=== PATIENT | female | born 1985 | race African-American/Black ===

== ENCOUNTER 2017-07-18 10:43 | Inpatient (IN) ==
[2017-07-18] MEDS ORDERED: ONDANSETRON 4 MG/2 ML VIAL IV PRN (11:05)
[2017-07-18] MEDS ORDERED: BUTORPHANOL 2 MG/ML VIAL IV PRN (11:05)
[2017-07-18] MEDS ORDERED: MEPERIDINE 50 MG/1 ML VIAL IV PRN (11:05)
[2017-07-18 11:13] LABS: Basophils % 0.3 % (0.0-0.8); Eosinophils # 0.3 10*3/uL (0.0-0.87); Eosinophils % 3.3 % (0.00-10.9); Hematocrit 36.4 VOL% (35.7-47.0); Hemoglobin 12.1 GM/DL (12.0-16.0); Immature Granulocytes % 0.5 %; Immature Granulocytes Absolute 0.04 #; Lymphocytes # 1.9 10*3/uL (1.4-4.0); Lymphocytes % 24.4 % (21.3-54.2); Mean Corpuscular HGB Conc 33.2 GM/DL (32-36); Mean Corpuscular Hemoglobin 28 PG (27-34); Mean Corpuscular Volume 83.3 FL (87-102); Monocytes # 0.7 10*3/uL (0.11-0.8); Monocytes % 9.5 % (1.7-12.7); Neutrophils # 4.8 10*3/uL (1.4-7.4); Platelet Count 131 T/CUMM (130-400); Red Blood Count 4.37 MC/CUMM (3.8-5.5); Red Cell Distribution Width 14.6 % (9.3-17.3); White Blood Count 7.7 T/CUMM (4-12)
[2017-07-18] MEDS: LACTATED RINGERS 1,000 ML IV SCH ×2 (11:20→20:24)
[2017-07-18] MEDS ORDERED: OXYTOCIN/LR 20 UNIT/1,000 ML BAG IV SCH (11:30)
[2017-07-18] MEDS ORDERED: AMPICILLIN INJ 2,000 MG in SODIUM CHLORIDE 0.9% 100 ML IV ONE (11:31)
[2017-07-18 12:46] LABS: Albumin 2.6 G/DL (3.4-5.0); Bilirubin,Total 0.7 MG/DL (0.2-1.0); Calcium 8.8 MG/DL (8.5-10.1); Osmolality,Calculated 271.5 MOS/KG (273-304); Potassium 3.6 MMOL/L (3.5-5.1); Total Protein 6.2 G/DL (6.4-8.3)
[2017-07-18] MEDS ORDERED: ePHEDrine 50 MG/ML AMP IV PRN (15:36)
[2017-07-18] MEDS ORDERED: hydrOXYzine HCL 25 MG/1 ML VIAL IM PRN (15:36)
[2017-07-18] MEDS ORDERED: LACTATED RINGERS 1,000 ML IV ONE (15:36)
[2017-07-18] MEDS ORDERED: CITRIC ACID/SODIUM CITRATE 30 ML UDCUP PO ONE (15:36)
[2017-07-18] MEDS ORDERED: FAMOTIDINE 20 MG/2 ML VIAL IV ONE (15:36)
[2017-07-18] MEDS ORDERED: PROMETHAZINE 25 MG/1 ML VIAL IM ONE (15:36)
[2017-07-18] MEDS ORDERED: diphenhydrAMINE 50 MG/1 ML VIAL IV PRN ×2 (15:36)
[2017-07-18] MEDS: AMPICILLIN INJ 1,000 MG in SODIUM CHLORIDE 0.9% 100 ML IV SCH ×2 (15:55→20:23)
[2017-07-18] MEDS ORDERED: fentaNYL 2 MCG/ROPIV 0.2% EPID 150 ML EPIDURAL SCH (16:00)
[2017-07-18 17:03] LABS: Apearance,Urine CLEAR (Clear); Bilirubin,Urine Negative (Negative); Blood, Urine Negative (Negative); Glucose,Urine (UA) Negative (Negative); Ketones,Urine 5 mg/dL (Negative); Mucus,Urine Occasional /LPF (Occasional); Nitrite,Urine Negative (Negative); Protein,Urine Negative; RBC,Urine 2 /HPF (0-4); Renal Epithelial Cells,Urine Occasional /HPF (<1); Urine Color Straw (Yellow); Urine Specific Gravity 1.005 (1.001-1.035); Urine Urobilinogen < 2.0 EU/DL (0.2-1.0); WBC,Urine 1 /HPF (0-6)
[2017-07-18] MEDS ORDERED: LIDOCAINE 1% 50 ML VIAL ONE (19:33)
[2017-07-18] MEDS ORDERED: miSOPROStol 200 MCG TABLET ONE (19:33)
[2017-07-18] MEDS ORDERED: OXYTOCIN/LR 20 UNIT/1,000 ML BAG IV ONE (22:35)
[2017-07-18] MEDS ORDERED: RHO(D) IMMUNE GLOBULIN 300 MCG SYRINGE IM ONE (23:11)
[2017-07-18] MEDS ORDERED: BENZOCAINE 20%/MENTHOL 0.5% SPRAY 56 GM CAN TOP PRN (23:11)
[2017-07-18] MEDS ORDERED: BISACODYL 10 MG SUPP RECTAL PRN (23:11)
[2017-07-18] MEDS ORDERED: HYDROCORTISONE 2.5% RECTAL CREAM 30 GM TUBE TOP PRN (23:11)
[2017-07-18] MEDS ORDERED: oxyCODONE/ACETAMINOPHEN 5-325 MG TABLET PO PRN (23:11)
[2017-07-18] MEDS ORDERED: DIPH/TET/ACEL PERT BOOSTER VACCINE 0.5 ML VIAL IM ONE (23:11)
[2017-07-18] MEDS ORDERED: LANOLIN 50% CREAM 0.3 OZ TUBE TOP PRN (23:11)
[2017-07-18] MEDS ORDERED: WITCH HAZEL PADS 100/JAR TOP PRN (23:11)
[2017-07-18] MEDS ORDERED: ACETAMINOPHEN 325 MG TABLET PO PRN (23:11)
[2017-07-18] MEDS ORDERED: MEASLES/MUMPS/RUBELLA VACCINE 0.5 ML VIAL SUBCUT ONE (23:11)
[2017-07-18] MEDS ORDERED: ACETAMINOPHEN/CODEINE 300-30 MG TABLET PO PRN (23:11)
[2017-07-19] MEDS: IBUPROFEN 800 MG TABLET PO PRN ×3 (00:46→23:12)
[2017-07-19] MEDS: oxyCODONE/ACETAMINOPHEN 5-325 MG TABLET PO PRN ×3 (00:47→23:12)
[2017-07-19 06:39] LABS: Basophils % 0.2 % (0.0-0.8); Eosinophils % 0.1 % (0.00-10.9); Hemoglobin 10.1 GM/DL (12.0-16.0); Immature Granulocytes % 0.6 %; Lymphocytes # 2.3 10*3/uL (1.4-4.0); Lymphocytes % 13.4 % (21.3-54.2); Mean Corpuscular HGB Conc 34.8 GM/DL (32-36); Mean Corpuscular Hemoglobin 29 PG (27-34); Mean Corpuscular Volume 81.9 FL (87-102); Mean Platelet Volume 11.8 FL (9.6-12.0); Monocytes # 1.5 10*3/uL (0.11-0.8); Monocytes % 8.8 % (1.7-12.7); Neutrophils % 76.9 % (38.7-73.9); Platelet Count 118 T/CUMM (130-400); Red Blood Count 3.54 MC/CUMM (3.8-5.5); Red Cell Distribution Width 14.4 % (9.3-17.3)
[2017-07-19] MEDS: DOCUSATE SODIUM 100 MG CAPSULE PO SCH ×2 (09:42→21:11)
[2017-07-20 07:33] VITALS: BP 108/64
[2017-07-20] MEDS: DOCUSATE SODIUM 100 MG CAPSULE PO SCH (10:13)
== END 2017-07-20 13:20 | disposition home or self-care (01) | DRG 775 ==
LOC: N.LDOUT 10:43 → N.LD 10:46 → N.OB 23:53
PROVIDERS: ADMIT Obstetrics & Gynecology; ATTEND Obstetrics & Gynecology